=== PATIENT | male | born 1970 | race African-American/Black ===

== ENCOUNTER 2022-11-17 03:34 | Emergency (ER) | payer MEDICAID ==
[~2022-11-17] VITALS: Ht 185.4 cm; Wt 80.0 kg
[2022-11-17 03:37] VITALS: O2SAT 97
[2022-11-17 04:29] LABS: BASOPHILS % 0.5 % (0.0-2.0); EOSINOPHILS % 1.5 % (0.0-5.0); HEMATOCRIT. 53.2 % (42.0-52.0); HEMOGLOBIN. 17.9 g/dL (14.0-18.0); LYMPHOCYTES % 16.2 % (20.0-50.0); MEAN CORPUSCULAR HEMOGLOBIN 28.5 pg (28.0-32.0); MEAN CORPUSCULAR VOLUME 84.7 fL (80.0-94.0); MEAN PLATELET VOLUME 7.8 fl (7.4-10.4); MONOCYTES % 9.8 % (2.0-8.0); PLATELET 241 x1000/uL (130-400); RED BLOOD CELL COUNT 6.29 mill/uL (4.7-6.1); RED CELL DISTRIBUTION WIDTH 12.8 % (11.6-14.6)
[2022-11-17 04:37] LABS: CHLORIDE 109 mEq/L (98-107)
[2022-11-17 04:44] LABS: ETHANOL BLOOD < 10 mg/dL (-10)
[2022-11-17] MEDS ORDERED: LORAZEPAM 2MG/ML CPJ IM STA (06:18)
[2022-11-17] MEDS ORDERED: OLANZAPINE 10 MG/VIAL IM ONE (06:30)
[2022-11-17 15:31] LABS: *AMPHETAMINES SCREEN URINE PRESUMTIVE POSITIVE (NEGATIVE); *BARBITURATES SCREEN URINE NEGATIVE (NEGATIVE); *BENZODIAZEPINES SCREEN URINE NEGATIVE (NEGATIVE); *COCAINE SCREEN URINE NEGATIVE (NEGATIVE); CANNABINOID URINE SCREEN NEGATIVE (NEGATIVE); METHADONE URINE SCREEN NEGATIVE (NEGATIVE); OPIATES URINE SCREEN NEGATIVE (NEGATIVE); PHENCYCLIDINE URINE SCREEN NEGATIVE (NEGATIVE)
[2022-11-17 16:35] VITALS: BP 110/72; PULSE 128; RESP 16; TEMP 97.1
[2022-11-17] MEDS ORDERED: QUETIAPINE FUMARATE 200MG TABLET PO SCH (17:00)
== END 2022-11-17 19:24 | disposition home or self-care (01) ==
LOC: ER 03:56
DX: R45.851 Suicidal ideations (principal); I49.9 Cardiac arrhythmia, unspecified
CPT/HCPCS: 80053; 80305; 80307; 80329; 80320; 85025; 36415; 93005; 96372; 99284; J3490; J2060; G0480